=== PATIENT | female | born 1990 | race American Indian/Alaskan Native ===

== ENCOUNTER 2019-10-27 10:48 | Emergency (ER) | payer SELFPAY ==
[2019-10-27 11:05] VITALS: BP 130/91
== END 2019-10-27 11:56 | disposition left against medical advice (07) ==
LOC: ED 10:48
DX: M79.602 Pain in left arm (principal); Z53.21 Procedure and treatment not carried out due to patient leaving prior to being seen by health care provider

== ENCOUNTER 2019-11-26 16:11 | Emergency (ER) | payer SELFPAY | END 2019-11-26 16:15 | disposition left against medical advice (07) | LOC: ED 16:11 | DX: R19.7 Diarrhea, unspecified (principal); J02.9 Acute pharyngitis, unspecified; R05 Cough; Z53.21 Procedure and treatment not carried out due to patient leaving prior to being seen by health care provider ==

== ENCOUNTER 2019-11-26 20:30 | Emergency (ER) | payer SELFPAY ==
[2019-11-26 23:28] LABS: Hematocrit 32.1 % (30.3-42.9); Hemoglobin 11.5 gm/dl (10.1-14.3); Mean Corpuscular HGB Conc 36 % (30-34); Mean Corpuscular Volume 84 fl (79-97); Platelet Count 302 K/mm3 (140-440); Red Blood Count 3.82 M/mm3 (3.65-5.03); Red Cell Distribution Width 17.2 % (13.2-15.2)
[2019-11-26 23:42] LABS: Alanine Aminotransferase 15 units/L (7-56); Albumin 5.1 g/dL (3.9-5); Blood Urea Nitrogen 7 mg/dL (7-17); Calcium 9.4 mg/dL (8.4-10.2); Hemolysis Index 8
[2019-11-26 23:43] LABS: BUN/Creatinine Ratio 12
[2019-11-27 00:21] VITALS: BP 124/84
--- NOTE | 2019-11-27 00:53 | Emergency Department Report ---
HPI - General Chief Complaint: Sore Throat Time Seen by Provider: 11/27/19 00:03 - HPI HPI: This is a 29-year-old female presents to the emergency department with complaints of a sore throat, headache, mixed dry and productive cough, and diarrhea. Patient says that the sore throat has been going on for the past 5 to 6 days. Patient has a 2-day history of the cough and says that she is bringing up some greenish sputum. Patient says that her headache is generalized and started this morning. She denies any vision change, slurred speech, fever, chil ls, numbness or paresthesias, chest pain. She has taken some [id number] cough medication and something equivalent to DayQuil without any relief. No recent travel or sick contacts at home. No known exposure to anyone with Covid 19. She has a past medical history of hereditary spherocytosis. ED Past Medical Hx - Past Medical History Previous Medical History?: Yes Additional medical history: Hereditary spherocytosis - Surgical History Past Surgical History?: Yes Additional Surgical History: laproscopy. x 1 - Social History Smoking Status: Never Smoker - Medications Home Medications: Home Medications Medication Instructions Recorded Confirmed Last Taken Type Albuterol Mdi (or & Nicu Only) 2 puff IH QID PRN #8.5 gram 11/27/19 Unknown Rx [ProAir HFA Inhaler] Benzonatate [Tessalon Perles] 100 mg PO Q8HR PRN #20 capsule 11/27/19 Unknown Rx ED Review of Systems ROS: Stated complaint: DIARRHEA/SORE THROAT/COUGHING Other details as noted in HPI Comment: All other systems reviewed and negative Constitutional: denies: chills, fever Eyes: denies: eye pain, vision change ENT: throat pain. denies: ear pain Respiratory: cough. denies: shortness of breath Cardiovascular: denies: chest pain, palpitations Gastrointestinal: denies: abdominal pain, vomiting Genitourinary: denies: dysuria, discharge Musculoskeletal: denies: back pain, arthralgia Skin: denies: rash, lesions Neurological: headache. denies: weakness, numbness Physical Exam - Physical Exam Vital Signs: Vital Signs 11/26/19 11/27/19 22:09 00:20 Temperature 98.5 F Pulse Rate 111 H 90 Respiratory 14 20 Rate Blood Pressure 129/81 Blood Pressure 124/84 [Left] O2 Sat by Pulse 100 100 Oximetry Physical Exam: GENERAL: The patient is well-developed well-nourished. HENT: Normocephalic. Atraumatic. Patient has moist mucous membranes. Oropharynx is clear. Mild tonsillar hypertrophy but no erythema or exudates. No drooling or trismus. EYES: Extraocular motions are intact. NECK: Supple. Trachea is midline. CHEST/LUNGS: Clear to auscultation. No tachypnea or accessory muscle use. No cough heard during examination. There is no respiratory distress noted. HEART/CARDIOVASCULAR: Regular. There is no tachycardia. There is no murmur. ABDOMEN: Abdomen is soft, nontender. Patient has normal bowel sounds. SKIN: Skin is warm and dry. NEURO: The patient is awake, alert, and oriented. The patient is cooperative. The patient has no focal neurologic deficits. Normal speech. MUSCULOSKELETAL: There is no tenderness or deformity. There is no limitation range of motion. ED Course Vital Signs 11/26/19 11/27/19 22:09 00:20 Temperature 98.5 F Pulse Rate 111 H 90 Respiratory 14 20 Rate Blood Pressure 129/81 Blood Pressure 124/84 [Left] O2 Sat by Pulse 100 100 Oximetry ED Medical Decision Making - Lab Data Result diagrams: 11/26/19 23:01 11/26/19 23:01 - Radiology Data Radiology results: image reviewed interpreted by me: Chest x-ray does not show any acute process. There are no pleural effusions, obvious pneumonia and there is no pneumothorax. No significant cardiomegaly. - Medical Decision Making Patient presents with the complaints of a sore throat, mixed dry and productive cough, headache and some diarrhea. Negative rapid strep test. On examination there is some mild tonsillar hypertrophy but no erythema or exudates. No drooling or trismus. Chest x-ray did not show any pneumonia, pleural effusions, pneumothorax, focal consolidation, or any other acute process. Patient's labs were mostly unremarkable including CBC and metabolic panel except for an elevated bilirubin level. I believe the hyperbilirubinemia is secondary to the patient's hereditary spherocytosis. She does not have any abdominal pain and does not appear jaundiced. All the patient's symptoms together appear most consistent with a viral syndrome. Her vital signs have been reassuring including being afebrile and no hypoxia. Given the viral symptoms, and the current pandemic, the patient cannot be ruled out for Covid 19. I am unable to test her for Covid 19 at this time. She has been instructed to isolate/self quarantine and avoid anyone who is elderly, immunocompromised or chronically ill-appearing. She is also been instructed to seek outpatient Covid 19 testing. She will be discharged home with a prescription for an antitussive medication and an albuterol inhaler. She will return to the emergency department with any worsening of her symptoms or with any acute distress. Critical Care Time: No Critical care attestation.: If time is entered above; I have spent that time in minutes in the direct care o f this critically ill patient, excluding procedure time. ED Disposition Clinical Impression: Viral syndrome, Elevated bilirubin Upper respiratory infection Qualifiers: URI type: unspecified URI Qualified Code(s): J06.9 - Acute upper respiratory infection, unspecified Pharyngitis Qualifiers: Pharyngitis/tonsillitis etiology: unspecified etiology Qualified Code(s): J02.9 - Acute pharyngitis, unspecified Disposition: TO HOME OR SELFCARE Is pt being admited?: No Condition: Stable Instructions: Upper Respiratory Infection (ED), Viral Syndrome (ED) Additional Instructions: Please follow-up with a primary care physician in the next few days. Return to the emergency department with any worsening of your symptoms or with any acute distress. I have given you a referral for a local bag turner, Dr. Kali Reed, part of [facility], to follow-up regarding the elevated bilirubin levels. Take the medications as prescribed. Prescriptions: Albuterol Mdi (or & Nicu Only) [ProAir HFA Inhaler] 2 puff IH QID PRN #8.5 gram PRN Reason: Shortness Of Breath Benzonatate [Tessalon Perles] 100 mg PO Q8HR PRN #20 capsule PRN Reason: Cough Referrals: PRIMARY CARE, [Primary Care Provider] - 2-3 Days LYNETTE REED MD [Staff Physician] - 2-3 Days Time of Disposition: 00:54
--- NOTE | 2019-11-27 00:55 | XRay Report ---
CHEST 1 VIEW INDICATION: cough. COMPARISON: None. FINDINGS: Support devices: None. Heart: Within normal limits. Lungs/Pleura: No acute air space or interstitial disease. Additional findings: None. IMPRESSION: No acute abnormality. Signer Name: Sanjeev Da Silva MD Signed: 11/27/2019 12:51 AM Workstation Name: [id number]
[2019-11-27 04:45] LABS: Basophils % (Manual) 0 % (0.0-1.8); Eosinophils % (Manual) 0 % (0.0-4.3); Monocytes % (Manual) 0 % (0.0-7.3); Ovalocytes 2+; Schistocytes 1+; Total Cells Counted 100
[2019-11-27 04:46] LABS: Anisocytosis 1+; Platelet Estimate Consistent w Auto; Spherocytes Few
== END 2019-11-27 01:15 | disposition home or self-care (01) ==
LOC: ED 20:30
DX: J06.9 Acute upper respiratory infection, unspecified (principal); J02.9 Acute pharyngitis, unspecified; R94.5 Abnormal results of liver function studies; B34.9 Viral infection, unspecified; Z91.013 Allergy to seafood; Z91.040 Latex allergy status
CPT/HCPCS: 36415; 71045; 80053; 85007; 85025; 87116; 87430; 99283

== ENCOUNTER 2020-01-23 13:18 | Emergency (ER) | payer SELFPAY ==
--- NOTE | 2020-01-23 13:51 | Event Note ---
ED Screening Note ED Screening Note: 29-year-old -[place] female presents to the emergency department complaining 2 days of fatigue and weekness associated with nausea. PMH of hereditary managed by PCP in [place]. No pcp here. Noticed yellowing to her fingers and eyes too. This initial assessment/diagnostic orders/clinical plan/treatment(s) is/are subject to change based on patients health status, clinical progression and re- assessment by fellow clinical providers in the ED. Further treatment and workup at subsequent clinical providers discretion. Patient/guardian urged not to elope from the ED as their condition may be serious if not clinically assessed and managed. Initial orders include: labs
[2020-01-23 15:18] LABS: Basophils % (Auto) 0.3 % (0.0-1.8); Eosinophils # (Auto) 0.2 K/mm3 (0.0-0.4); Eosinophils % (Auto) 2.1 % (0.0-4.3); Hematocrit 31.9 % (30.3-42.9); Hemoglobin 11.3 gm/dl (10.1-14.3); Lymphocytes # (Auto) 1.4 K/mm3 (1.2-5.4); Lymphocytes % (Auto) 14.2 % (13.4-35.0); Mean Corpuscular HGB Conc 36 % (30-34); Mean Corpuscular Volume 85 fl (79-97); Monocytes # (Auto) 0.3 K/mm3 (0.0-0.8); Platelet Count 302 K/mm3 (140-440); Red Blood Count 3.75 M/mm3 (3.65-5.03); Red Cell Distribution Width 17.4 % (13.2-15.2)
[2020-01-23 15:32] LABS: Alanine Aminotransferase 11 units/L (7-56); Albumin 4.9 g/dL (3.9-5); Blood Urea Nitrogen 7 mg/dL (7-17); Calcium 9.5 mg/dL (8.4-10.2); Hemolysis Index 9
[2020-01-23 15:33] LABS: BUN/Creatinine Ratio 12
[2020-01-23] MEDS ORDERED: SODIUM CHLORIDE 0.9% 1000 ML 1,000 ML IV ONE (22:01)
--- NOTE | 2020-01-23 22:07 | Emergency Department Report ---
ED General Adult HPI - General Chief complaint: Nausea/Vomiting/Diarrhea Stated complaint: FATIGUE Time Seen by Provider: 01/23/20 21:55 Source: patient Mode of arrival: Ambulatory Limitations: No Limitations - History of Present Illness Initial comments: Patient is 29 years old female with history of hereditary spherocytosis. Patient presented to the ER complaining of generalized weakness for the last few days. Patient stated that she used to have a lot of blood transfusion when she was young. Patient currently denying any fever or chills. No abdominal pain, nausea or vomiting. Patient stated that she has not been drinking fluids enough. Patient denied any hematemesis, hematochezia, melena, hemoptysis or hematuria. Severity scale (0 -10): 4 - Related Data Previous Rx's Medication Instructions Recorded Last Taken Type Albuterol Mdi (or & Nicu Only) 2 puff IH QID PRN #8.5 gram 11/27/19 Unknown Rx [ProAir HFA Inhaler] Benzonatate [Tessalon Perles] 100 mg PO Q8HR PRN #20 capsule 11/27/19 Unknown Rx Allergies Allergy/AdvReac Type Severity Reaction Status Date / Time Fish Containing Products Allergy Anaphylaxis Verified 10/27/19 10:59 latex Allergy Rash Verified 10/27/19 10:59 shellfish derived Allergy Anaphylaxis Verified 10/27/19 10:59 ED Review of Systems ROS: Stated complaint: FATIGUE Other details as noted in HPI Comment: All other systems reviewed and negative Constitutional: denies: chills, fever Respiratory: denies: cough, shortness of breath, SOB with exertion, SOB at rest, wheezing Cardiovascular: denies: chest pain, palpitations, dyspnea on exertion Gastrointestinal: denies: abdominal pain, nausea, vomiting, diarrhea, consti pation, hematemesis, melena Genitourinary: denies: urgency, frequency, hematuria Musculoskeletal: denies: back pain Neurological: weakness ED Past Medical Hx - Past Medical History Previous Medical History?: Yes Additional medical history: Hereditary spherocytosis - Surgical History Past Surgical History?: Yes Additional Surgical History: laproscopy. x 1 - Social History Smoking Status: Never Smoker Substance Use Type: None - Medications Home Medications: Home Medications Medication Instructions Recorded Confirmed Last Taken Type Albuterol Mdi (or & Nicu Only) 2 puff IH QID PRN #8.5 gram 11/27/19 Unknown Rx [ProAir HFA Inhaler] Benzonatate [Tessalon Perles] 100 mg PO Q8HR PRN #20 capsule 11/27/19 Unknown Rx ED Physical Exam - General Limitations: No Limitations General appearance: alert, in no apparent distress - Head Head exam: Present: atraumatic, normocephalic, normal inspection - Eye Eye exam: Present: normal appearance - ENT ENT exam: Present: mucous membranes dry - Neck Neck exam: Present: normal inspection - Respiratory Respiratory exam: Present: normal lung sounds bilaterally. Absent: respiratory distress, wheezes, rales, rhonchi - Cardiovascular Cardiovascular Exam: Present: tachycardia - GI/Abdominal GI/Abdominal exam: Present: soft, normal bowel sounds. Absent: distended, tenderness, guarding, rebound, rigid, organomegaly, mass, bruit, pulsatile mass, hernia - Extremities Exam Extremities exam: Present: normal inspection, full ROM, normal capillary refill. Absent: pedal edema, calf tenderness - Back Exam Back exam: Present: normal inspection, full ROM. Absent: CVA tenderness (R), CVA tenderness (L) - Neurological Exam Neurological exam: Present: alert, oriented X3, CN II-XII intact, normal gait, reflexes normal. Absent: motor sensory deficit - Skin Skin exam: Present: warm, intact, normal color ED Course Vital Signs 01/23/20 01/23/20 01/24/20 13:26 15:53 00:00 Temperature 98.8 F Pulse Rate 143 H 125 H 92 H Respiratory 18 18 18 Rate Blood Pressure 140/79 128/79 [Right] O2 Sat by Pulse 100 99 97 Oximetry ED Medical Decision Making - Lab Data Result diagrams: 01/23/20 14:53 01/23/20 14:53 - EKG Data -: EKG Interpreted by Il EKG shows normal: sinus rhythm Rate: tachycardia - EKG Data Interpretation: no acute changes - Medical Decision Making Patient is 29 years old female with history of hereditary spherocytosis. Patient presented to the ER complaining of generalized weakness for the last few days. Patient stated that she used to have a lot of blood transfusion when she was young. Patient currently denying any fever or chills. No abdominal pain, nausea or vomiting. Patient stated that she has not been drinking fluids enough. Patient denied any hematemesis, hematochezia, melena, hemoptysis or hematuria. Labs reviewed and is unremarkable except for ketones in the urine indicating dehydration which is consistent with patient decreased p.o. intake. Patient received 1 L of normal saline and her heart rate went down from 145 down to 92. Patient stated that she is feeling much better. Patient advised to follow-up with her primary care physician in the next 2 to 3 days and to return to the ER if she develop any new symptoms. Critical care attestation.: If time is entered above; I have spent that time in minutes in the direct care of this critically ill patient, excluding procedure time. ED Disposition Clinical Impression: Weakness, Dehydration Disposition: DC-01 TO HOME OR SELFCARE Is pt being admited?: No Condition: Stable Instructions: Dehydration, Adult, [id number] Referrals: PRIMARY CARE, [Primary Care Provider] - 3-5 Days
[2020-01-23 22:38] LABS: HCG Qualitative,Urine Negative (Negative)
[2020-01-23 22:41] LABS: Bacteria,Urine 1+ /HPF (Negative); Bilirubin,Urine NEG (Negative); Blood,Urine NEG (Negative); Color,Urine Yellow (Yellow); Protein,Urine <15 mg/dL mg/dL (Negative); WBC,Urine < 1.0 /HPF (0.0-6.0)
[2020-01-23 23:04] LABS: Free T4 (Free Thyroxine) 1.13 ng/dL (0.76-1.46)
[2020-01-24 00:06] VITALS: BP 128/79
== END 2020-01-24 01:06 | disposition home or self-care (01) ==
LOC: ED 13:18
DX: E86.0 Dehydration (principal); Z98.890 Other specified postprocedural states; Z91.013 Allergy to seafood; Z91.040 Latex allergy status
CPT/HCPCS: 36415; 80053; 81001; 81025; 84439; 84443; 85025; 93005; 96360; 99283; J7030